=== PATIENT | female | born 1970 | race Caucasian/White ===

== ENCOUNTER 2020-07-02 00:27 | Emergency (ER) | payer OTHER ==
[2020-07-02] MEDS ORDERED: Lidocaine 1% (PF) 30 ML VIAL ONE (00:47)
[2020-07-02] MEDS ORDERED: Boostrix 0.5 ML (Tdap) VIAL ONE (00:50)
== END 2020-07-02 01:36 | disposition home or self-care (01) ==
LOC: NAV ERS 00:27
DX: S61.213A Laceration without foreign body of left middle finger without damage to nail, initial encounter (principal); E03.9 Hypothyroidism, unspecified; W26.9XXA Contact with unspecified sharp object(s), initial encounter
CPT/HCPCS: 12001; 90471; 90715; J2001

== ENCOUNTER 2021-08-08 20:20 | Emergency (ER) | payer OTHER ==
[2021-08-08] MEDS ORDERED: methylPREDNISolone Acetate 40 mg/ml Vial ONE (20:42)
[2021-08-08] MEDS ORDERED: Cephalexin 250 MG CAP ONE (20:42)
== END 2021-08-08 21:21 | disposition home or self-care (01) ==
LOC: NAV ERS 20:20
DX: T63.481A Toxic effect of venom of other arthropod, accidental (unintentional), initial encounter (principal); L03.116 Cellulitis of left lower limb; E03.9 Hypothyroidism, unspecified; Z79.899 Other long term (current) drug therapy
CPT/HCPCS: 96372; 99282; J2920